=== PATIENT | male | born 1985 | race Caucasian/White ===

== ENCOUNTER 2023-07-28 08:36 | Emergency (ER) | payer OTHER ==
[~2023-07-28] VITALS: Ht 180.3 cm; Wt 72.6 kg
[2023-07-28 08:55] VITALS: O2SAT 100
== END 2023-07-28 09:08 | disposition left against medical advice (07) ==
LOC: ER 08:36
DX: Z53.21 Procedure and treatment not carried out due to patient leaving prior to being seen by health care provider (principal)
CPT/HCPCS: A4606; A4663